=== PATIENT | female | born 1980 | race Caucasian/White ===

== ENCOUNTER 2017-12-20 11:50 | Emergency (ER) | payer MEDICAID ==
[~2017-12-20] VITALS: Ht 162.6 cm; Wt 72.6 kg
[2017-12-20 12:18] VITALS: BP 138/66
== END 2017-12-20 13:31 | disposition home or self-care (01) ==
LOC: ER 11:50
DX: M70.61 Trochanteric bursitis, right hip (principal); Y93.B9 Activity, other involving muscle strengthening exercises
CPT/HCPCS: 73502

== ENCOUNTER 2020-10-02 13:29 | Emergency (ER) | payer MEDICAID ==
[~2020-10-02] VITALS: Ht 162.6 cm; Wt 83.9 kg
[2020-10-02 14:29] VITALS: BP 153/88
[2020-10-02] MEDS ORDERED: KETOROLAC TROMETH 60MG/2ML VIAL IM ONE (15:00)
== END 2020-10-02 15:50 | disposition home or self-care (01) ==
LOC: ER 13:29
DX: M65.232 Calcific tendinitis, left forearm (principal)
CPT/HCPCS: 73080; 96372; 99283; J1885

== ENCOUNTER 2022-04-27 07:26 | Emergency (ER) | payer MEDICAID ==
[~2022-04-27] VITALS: Ht 162.6 cm; Wt 182.0 kg
[2022-04-27] MEDS ORDERED: ASPirin 81 mg TAB PO ONE (08:45)
[2022-04-27] MEDS ORDERED: METOCLOPRAMIDE HCL 5MG/ml INJ 2ml VIAL IV ONE (08:45)
[2022-04-27] MEDS ORDERED: PANTOPRAZOLE 40 MG TAB PO ONE (08:45)
[2022-04-27] MEDS ORDERED: KETOROLAC TROMETH 30 MG/ML 1ML VIAL IV ONE (08:45)
[2022-04-27] MEDS ORDERED: DONNATAL 5ml ORAL Elix (BELLADONNA ALK-PHENOBARB) PO ONE (08:45)
[2022-04-27] MEDS ORDERED: ALUM & MAG HYDROX-SIMETH LIQ(MAALOX) 30 ML PO ONE (08:45)
[2022-04-27] MEDS ORDERED: SODIUM CHLORIDE 0.9% 1,000 ML IV ONE (08:45)
[2022-04-27 08:51] LABS: Basophils # (auto) 0 10 ^3/uL (0-0.2); Basophils % (auto) 0.5 % (0.0-2.0); Eosinophils # (auto) 0 10 ^3/uL (0-0.8); Eosinophils % (auto) 0.3 % (0.0-7.0); Hematocrit 37.9 % (36.0-46.0); Hemoglobin 12.9 g/dL (12.2-16.2); Lymphocytes # (auto) 0.4 10 ^3/uL (0.4-5.4); Lymphocytes % (auto) 5.5 % (10.0-50.0); Mean Corpuscular Volume 91.3 fL (80.0-100.0); Monocytes # (auto) 0.6 10 ^3/uL (0-1.3); Monocytes % (auto) 8.7 % (0.0-12.0); Neutrophils # (auto) 5.9 10 ^3/uL (1.6-8.6); Red Blood Cells 4.15 10^6/uL (4.0-5.20); Red Cell Distribution Width 13.4 % (11.8-14.3)
[2022-04-27 09:06] LABS: Albumin 3.8 g/dL (3.4-5.0); Calcium 9.1 mg/dL (8.5-10.1); Potassium 4.2 mmol/L (3.5-5.1)
[2022-04-27 09:09] LABS: BUN/Creatinine Ratio 10.6; Bilirubin, Total 0.3 mg/dL (0.2-1.0); Total Protein 7.1 g/dL (6.4-8.2)
[2022-04-27 09:12] LABS: Partial Thromboplastin Time 28.5 sec (24.6-33.4)
[2022-04-27 09:45] LABS: Urine Bacteria FEW /hpf (None Seen); Urine Blood Negative /uL (Negative); Urine Specific Gravity 1.005 (1.001-1.035); Urine WBC 13 /hpf (0 - 5)
[2022-04-27] MEDS ORDERED: cefTRIAXone 1GM/50ML D5W 50 ML IV ONE (11:00)
[2022-04-27] MEDS ORDERED: ASCORBIC ACID 500 MG TAB PO ONE (11:45)
[2022-04-27] MEDS ORDERED: ERGOCALCIFEROL 50,000 UNIT(1.25MG) CAP PO SCH (11:45)
[2022-04-27] MEDS ORDERED: AZITHROMYCIN 500MG/ 250ML 250 ML IV ONE (11:45)
[2022-04-27] MEDS ORDERED: ZINC SULFATE 220mg CAP or TAB PO ONE (11:45)
[2022-04-27 13:00] VITALS: BP 111/48
[2022-04-27] MEDS ORDERED: ZINC220C10 PO (13:27)
[2022-04-27] MEDS ORDERED: AZIT500T PO (13:27)
[2022-04-27] MEDS ORDERED: ASCO500T11 PO (13:27)
[2022-04-27] MEDS ORDERED: CHOL500035 PO (13:27)
== END 2022-04-27 13:20 | disposition home or self-care (01) ==
LOC: ER 07:26 → EDBD 07:26 → ER 13:20
DX: U07.1 COVID-19 (principal); N39.0 Urinary tract infection, site not specified; R11.2 Nausea with vomiting, unspecified; E03.9 Hypothyroidism, unspecified; Z90.89 Acquired absence of other organs
CPT/HCPCS: 36415; 71045; 80053; 81001; 81025; 83690; 83735; 83880; 84443; 84484; 85025; 85379; 85610; 85730; 87426; 93005; 96361; 96365; 96366; 96368; 96375; 99285; J0456; J0696; J1885; J2765; J7030